=== PATIENT | female | born 1970 | race Caucasian/White ===

== ENCOUNTER 2019-11-10 20:12 | Emergency (ER) | payer BC ==
[~2019-11-10] VITALS: Ht 165.1 cm; Wt 118.4 kg
[~2019-11-10 20:12] MED LIST: BENTYL20 MG PO; CRESTOR10 MG PO; GABAPENTIN800 MG PO; LEVAQUIN500 MG PO; LOSARTAN POTAS100 MG PO; NAPROXEN500 MG PO; ROBAXIN500 MG PO; VALIUM10 MG PO; ZOFRAN ODT4 MG SL
--- NOTE | 2019-11-10 22:08 | Emergency Department Note ---
History of Present Illnes History of Present Illness Chief Complaint: Extremity Trauma/Pain History of Present Illness This is a 48 year old female PRESENTS TO THE ER C/O LT GREATER TOE SWELLING AND PAIN ONSET THIS AM; PT REPORTS PAIN WHEN BEARING WEIGHT; LT GREATER TOE RED AND WARM TO TOUCH;. Historian: Patient Arrival Mode: Car Onset (how long ago): hour(s) (10) Location: LEFT GREAT TOE Quality: PAIN, SWELLING AND REDNESS Radiation: Reports non-radiation Severity: moderate Onset quality: sudden Duration (how long): hour(s) (10) Timing of current episode: constant Progression: unchanged Chronicity: new Context: Denies recent illness, Denies recent surgery Relieving factors: immobilization Exacerbating factors: movement, other (WALKING) Associated symptoms: Reports denies other symptoms Past Medical/Family History Physician Review I have reviewed the patient's past medical and family history. Any updates have been documented here. Past Medical History Recent Fever: No Clinical Suspicion of Infectio: No New/Unexplained Change in Ment: No Past Medical History: Kidney Stones, UTI's, Anxiety, GERD, Hyperlipedemia Other Medical History: CHRONIC BACK PAIN CHRONIC ANKLE PAIN Other Surgery: skin grafts, breast reduction, back surgery, leep, conization, right ankle sx Social History Smoking Cessation: Current every day smoker Alcohol Use: None Any Illegal Drug Use: No TB Exposure/Symptoms: No Physically hurt or threatened: No Family History Family history of heart diseas: No Other Last Tetanus: unknown Any Pre-Existing Lines (PICC,: No Is patient up to date on immun: Yes Last Flu: UTD Last Pneumovax: UNK Review of Systems Review of Systems Constitutional: Reports no symptoms EENTM: Reports no symptoms Cardiovascular: Reports no symptoms Respiratory: Reports no symptoms Gastrointestinal: Reports no symptoms Genitourinary: Reports no symptoms Musculoskeletal: Reports as per HPI Integumentary: Reports no symptoms Neurological: Reports no symptoms Psychological: Reports no symptoms Endocrine: Reports no symptoms Hematological/Lymphatic: Reports no symptoms Physical Exam Related Data Allergies: Coded Allergies: Penicillins (Verified Allergy, Unknown, Rash, itching, 05/14/16) codeine (Verified Allergy, Unknown, 05/14/16) morphine (Verified Allergy, Unknown, facial swelling, 05/14/16) Triage Vital Signs Vital Signs Date Time Temp Pulse Resp B/P (MAP) Pulse Ox O2 Delivery O2 Flow Rate FiO2 11/10/19 21:00 99.3 90 20 117/89 95 Vital signs reviewed: Yes Physical Exam CONSTITUTIONAL Constitutional: Present well-developed, Present well-nourished HENT HENT: Present normocephalic, Present atraumatic, Present oropharynx clear/mo ist, Present nose normal HENT L/R: Present left ext ear normal, Present right ext ear normal EYES Eyes: Reports PERRL, Reports conjunctivae normal NECK Neck: Present ROM normal PULMONARY Pulmonary: Present effort normal, Present breath sounds normal CARDIOVASCULAR Cardiovascular: Present regular rhythm, Present heart sounds normal, Present capillary refill normal, Present normal rate GASTROINTESTINAL Abdominal: Present soft, Present nontender, Present bowel sounds normal GENITOURINARY Genitourinary: Present exam deferred SKIN Skin: Present warm, Present dry MUSCULOSKELETAL Musculoskeletal: Present ROM normal, Present tenderness (LEFT TOE MP JOINT), Present swelling (LEFT TOE MP JOINT) NEUROLOGICAL Neurological: Present alert, Present oriented x 3, Present no gross motor or sensory deficits PSYCHOLOGICAL Psychological: Present mood/affect normal, Present judgement normal Assessment & Plan Medical Decision Making [facility] PT WITH REDNESS AND SWELLING TP MP JOINT LEFT GREAT TOE, GOUT LIKE IN APPEARANCE PT DISCHARGED WITH INDOCIN 50 MG PO Q 8 HOURS PRN PAIN Assessment & Plan Final Impression: (1) Gout Depart Disposition: HOME, SELF-CARE Last Vital Signs Date Time Temp Pulse Resp B/P (MAP) Pulse Ox O2 Delivery O2 Flow Rate FiO2 11/10/19 21:00 99.3 90 20 117/89 95 Home Meds Reported Medications Ondansetron (ZOFRAN ODT) 4 Mg Tab.rapdis, 4 MG SL Q6H PRN for NAUSEA, TAB 05/14/16 Dicyclomine Hcl (BENTYL) 20 Mg Tablet, 20 MG PO Q6H for ABDOMINAL PAIN 05/14/16 Levofloxacin (LEVAQUIN) 500 Mg Tablet, 500 MG PO DAILY, TAB 05/30/15 Naproxen (NAPROXEN) 500 Mg Tablet, 500 MG PO DAILY 05/27/15 Gabapentin (GABAPENTIN) 800 Mg Tablet, 800 MG PO QID 05/27/15 Methocarbamol (ROBAXIN) 500 Mg Tablet, 750 MG PO BID 05/27/15 Diazepam (VALIUM) 10 Mg Tablet, 10 MG PO PRN PRN for ANXIETY 05/27/15 Rosuvastatin Calcium (CRESTOR) 10 Mg Tab, 10 MG PO HS THERAPEUTICALLY SUBSTITUTED WITH SIMVASTATIN 40MG 05/27/15 Losartan Potassium (LOSARTAN POTASSIUM) 100 Mg Tablet, 100 MG PO DAILY, TAB 05/27/15 FELIX VELASQUEZ MD Nov 10, 2019 22:07
== END 2019-11-10 22:02 | disposition home or self-care (01) ==
LOC: ER 20:12
DX: M79.675 Pain in left toe(s) (principal); M10.9 Gout, unspecified; M79.89 Other specified soft tissue disorders; E78.5 Hyperlipidemia, unspecified; K21.9 Gastro-esophageal reflux disease without esophagitis; F41.9 Anxiety disorder, unspecified
CPT/HCPCS: 99282